=== PATIENT | female | born 1955 | race African-American/Black ===

== ENCOUNTER → 2017-07-12 | Outpatient (CLI) | payer OTHER | LOC: CFH 12:09 | PROVIDERS: ATTEND Family Medicine | DX: Z12.2 Encounter for screening for malignant neoplasm of respiratory organs (principal); Z12.31 Encounter for screening mammogram for malignant neoplasm of breast; Z13.820 Encounter for screening for osteoporosis; I25.10 Atherosclerotic heart disease of native coronary artery without angina pectoris; E04.2 Nontoxic multinodular goiter; D71 Functional disorders of polymorphonuclear neutrophils; F17.210 Nicotine dependence, cigarettes, uncomplicated; N95.9 Unspecified menopausal and perimenopausal disorder | CPT/HCPCS: 76536; 77067; 77080; G0297 ==